=== PATIENT | male | born 1995 | race Caucasian/White ===

== ENCOUNTER 2017-09-12 10:35 | Observation (INO) | payer OTHER ==
[~2017-09-12 10:35] MED LIST: CEFAZOLIN 2 GM/D5W RTU 2 GM/50 ML RTUPB IV PRN; CEFAZOLIN SODIUM 2 GM in NORMAL SALINE 100 ML IV PRN
[2017-09-12] MEDS ORDERED: MIDAZOLAM 2 MG/2 ML INJ ONE ×2 (14:25→16:04)
[2017-09-12] MEDS ORDERED: MIDAZOLAM 2 MG/2 ML INJ IV ONE (14:30)
[2017-09-12] MEDS ORDERED: DEXAMETHASONE SOD PHOSPHATE INJ 4 MG/1 ML VIAL ONE (16:04)
[2017-09-12] MEDS ORDERED: FENTANYL CITRATE INJ/PF 250 MCG/5 ML AMPULE ONE (16:04)
[2017-09-12] MEDS ORDERED: ONDANSETRON HCL INJ/PF 4 MG/2 ML SDV ONE (16:04)
[2017-09-12] MEDS ORDERED: ACETAMINOPHEN 1,000 MG/100 ML RTUPB IV ONE (16:05)
[2017-09-12] MEDS ORDERED: PROPOFOL INJ 200 MG/20 ML VIAL IV ONE (16:05)
[2017-09-12] MEDS ORDERED: HYDROMORPHONE HCL INJ/PF 2 MG/ML AMPULE ONE (16:05)
[2017-09-12] MEDS ORDERED: SUCCINYLCHOLINE CHLORIDE INJ 200 MG/10 ML VIAL ONE (16:16)
[2017-09-12] MEDS ORDERED: MEPERIDINE HCL/PF INJ 25 MG/1 ML DISP.SYRIN IV PRN (17:33)
[2017-09-12] MEDS ORDERED: FENTANYL CITRATE INJ/PF 100 MCG/2 ML AMPUL IV PRN ×2 (17:33)
[2017-09-12] MEDS ORDERED: PROMETHAZINE HCL INJ 25 MG/1 ML VIAL IV PRN (17:33)
[2017-09-12] MEDS ORDERED: DIPHENHYDRAMINE HCL 50 MG/ML VIAL IV PRN ×2 (17:33→20:39)
[2017-09-12] MEDS ORDERED: BUPIVACAINE HCL 0.5 % INJ/PF 30 ML SDV ONE (18:53)
[2017-09-12] MEDS ORDERED: ONDANSETRON HCL INJ/PF 4 MG/2 ML SDV IV PRN (20:38)
[2017-09-12] MEDS ORDERED: ONDANSETRON 4 MG TAB.RAPDIS PO PRN (20:39)
--- NOTE | 2017-09-12 20:40 | Discharge Summary ---
Discharge Summary (SDC) - Discharge Final Diagnosis: Coronoid fracture with ulnohumeral dislocation/instability status post trans- olecranon fracture dislocation Date of Surgery: 09/12/17 Discharge Date: 09/12/17 Condition: Good Treatment or Instructions: Schedule Follow Up w/ Dr. Seun Reid @ [facility] to be seen in 10-14 days or as scheduled [place]: [place]: [place]: Ice and elevate Keep splint clean/dry/intact. If your fingers become numb please unwrap the Niraj wrap but leave the splint in place, if the sensation does not return within 30 minutes please return to the emergency department. May begin finger range of motion attempting to make full fist. Please use ibuprofen (Motrin or Advil) 600-800 mg every 8 hours as needed for pain or fever DO NOT TAKE w/ TORADOL may use once TORADOL complete. You may also use acetaminophen (Tylenol) 1000 mg every 4-6 hours as needed for pain or fever. Please be aware that many medications contain acetaminophen, do not exceed a total of 1000 mg of acetaminophen every 6 hours. If ibuprofen and acetaminophen are not sufficient for your pain you may take the Percocet/[place]. Please be aware that the Percocet/[place] does contain Tylenol. Stool softener of choice when on pain medication. Prescriptions: Ketorolac Tromethamine [Toradol 10 mg Tablet] 10 mg PO Q8HP PRN #10 tablet PRN Reason: Oxycodone HCl 5 mg PO Q6 PRN #30 tablet PRN Reason: Pain Scale Of 5 Discharge Diet: As Tolerated Respiratory Treatments at Home: Deep Breathing/Coughing Discharge Activity: No Lifting Over 10 Pounds, No Lifting/Push/Pulling Report the Following to Your Physician Immediately: Fever over 101 Degrees, Unusual Bleeding, Redness, Swelling, Warmth, Increased Soreness
[2017-09-12] MEDS ORDERED: FENTANYL CITRATE INJ/PF 100 MCG/2 ML AMPUL ONE (20:51)
[2017-09-12] MEDS: FENTANYL CITRATE INJ/PF 100 MCG/2 ML AMPUL IV PRN ×2 (20:53→20:57)
--- NOTE | 2017-09-12 20:56 | Operative Report ---
Operative Report DATE OF SURGERY: 09/12/17 PREOPERATIVE DIAGNOSIS: Coronoid fracture with ulnohumeral dislocation/ instability status post trans-olecranon fracture dislocation POSTOPERATIVE DIAGNOSIS: Same OPERATION: 1. Removal of hardware left elbow. 2. LEFT revision open reduction internal fixation coronoid fracture. 3. LEFT placement of static external fixator ulnohumeral dislocation. 4. LEFT ulnar nerve neuro lysis with subcutaneous transposition. 5. 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 Patient underwent initial successful open reduction internal fixation, unfortunately patient developed instability of the left elbow resulting in ulnohumeral dislocation. Patient was seen initially at [facility] and then sent to [place] for evaluation and treatment. We discussed treatment options given the dislocation of the patient's elbow I felt somewhat urgent operative intervention was warranted and thus we discussed revision open reduction internal fixation coronoid fracture with the possibility of placement of external fixator given patient's residual instability. We also discussed severity of patient's injury and likelihood of posttraumatic arthritis and loss of motion which could cause future issues. After discussing patient outcomes and treatment options decision was made to proceed with operative intervention. Procedure In Detail: Patient was seen and evaluated in the preoperative holding area. The upper extremity was initialized and marked. Patient received 2g of Ancef IV for bacterial prophylaxis. Patient was taken back to the operative room where transferred to the operative table positioned in the supine position and placed under general anesthesia. Once they were adequately anesthetized a nonsterile tourniquet was placed on the upper extremity. A surgical team debriefing was performed ensuring all instrumentation was available, the surgical procedure was discussed with possible concerns reviewed. The upper extremity was prepped with ChloraPrep and draped in a sterile fashion. A timeout was done identifying correct patient, procedure and extremity everyone in attendance agree with this and verbalized no concerns. The extremity was exsanguinated the tourniquet was inflated to 250 mmHg. Patient's previous skin incision was utilized. Blunt dissection was performed until the olecranon plate was approached. I then elevated the soft tissues and the ulnar nerve was identified proximal to the previous surgical site exiting the medial intermuscular septum and triceps. I then freed the nerve distally from Gutierrez's ligament at the cubital tunnel. At the level of the FCU aponeurosis there is significant compression and scarring of the ulnar nerve at this level. Careful blunt dissection was performed and a vascular loop was placed to control the ulnar nerve. Neuro lysis was performed to the first motor branch. I also dissected distal to the first motor branch to further free up the nerve to allow further exposure of the coronoid. As noted previously there was significant compression thus a nerve stimulator was utilized throughout the neuro lysis portion of the procedure which demonstrated the ulnar nerve remained intact. I then gently elevated the ulnar nerve to protected throughout the entirety of the case. The flexor pronator origin was then elevated from the medial epicondyle. Special attention was directed while elevating the flexor pronator mass from the ulnar collateral ligament to preserve it for later repair. Once the flexor pronator mass was elevated and the underlying neurovascular structures protected the medial aspect of the ulnohumeral joint was identified. There was loose body fragments throughout the joint which were removed. The joint was copiously irrigated with normal saline. One large coronoid fragment remained there was complete disruption of the anterior capsule. Inspection of the trochlea demonstrated a large full-thickness disruption of the cartilage which measured approximately 1 mm in depth and followed the curvature of the trochlea for approximately 1 cm. Unfortunately due to the loss of the coronoid fixation the headless compression screw caused significant chondral wear as noted above. Two of the headless compression screws were removed along with an interfragmentary screw within the olecranon. I then turned my attention to fixation of the coronoid. I attempted to place suture fixation within the anterior capsule but given its significant disruption this was unsuccessful. I did note previous FiberWire within the anterior capsule which likely was obtaining fixation until redislocation. I then secured the coronoid fragment placing Montage bone graft to provide further fixation while holding reduction a K wire was placed from posterior to anterior into the coronoid fragment. The Acumed coronoid plate was then secured into position. The first cortical screw was placed providing provisional fixation. C-arm fluoroscopy was obtained confirming appropriate placement of the coronoid plate. I then placed additional fixation distally 1 bicortical screw and 1 locking screw. Sharp tongs of the plate secured the coronoid fragment into position I then placed an additional bicortical screw within the coronoid fragment which provided adequate fixation. Unfortunately there was some mild incongruity of the joint surface given the amount of bone loss along the coronoid base. Under direct visualization I confirmed the screw traversing the coronoid into the olecranon was not within the joint despite projection on radiographs. With range of motion I had adequate fixation of the coronoid fragment without evidence of loosening. The previous K wire was then removed. The wound was once again copiously irrigated with normal saline. A Arthrex 3 mm x 14 mm suture tack anchor was then placed at the origin of the ulnar collateral ligament. A running Krakw suture was placed in the ulnar collateral ligament securing fixation. The remaining sutures were then run distal and proximal within the flexor pronator origin further providing fixation. During closure of the flexor pronator interval the ulnar nerve was positioned anteriorly to allow for later transposition. Once the interval was closed a subcutaneous pouch was fashioned and the ulnar nerve was secured subcutaneously with 3-0 Vicryl suture during transposition a [place] was placed over the ulnar nerve to avoid inadvertent compression. The wound was once again copiously irrigated with normal saline. Tourniquet was deflated. Any peripheral bleeding was controlled with bipolar cautery. Subcutaneous tissues were closed with interrupted 3-0 Vicryl suture and skin was closed with louie. C-arm fluoroscopy was obtained confirming adequate reduction of the coronoid fragment there was improved stability of the elbow however continued to have instability with 60 of extension and thus decision was made to proceed with static external fixator. Extremity was once again exsanguinated and tourniquet inflated to 250 mmHg after 20 minute break point between tourniquet times. C-arm fluoroscopy was obtained confirming the appropriate placement of my patients within the humerus and the olecranon. A 3 cm skin incision was made along the lateral humerus blunt dissection was performed through the triceps and the radial nerve was identified and retracted to expose the lateral humerus. A 4 mm pin was then placed into the central position bicortically. A second skin incision was made distal. Blunt dissection was once again performed and the radial nerve identified anteriorly once again retracted and a 4 mm pin placed into the central position bicortically and confirmed with C-arm fluoroscopy. Distally within the a stab incision was made blunt dissection performed distal to the olecranon plate and a 4 mm pin was placed. Proximally between 2 screws at the olecranon plate a stab incision was once again made and blunt dissection performed exposing the ulna and a bicortical 4 mm pin was placed. The pins proximally and distally respectively were connected with a bar and interconnection was made between these 2 bars while maintaining reduction of the ulnohumeral joint. I then placed an additional bar from the far proximal to far distal to provide secondary fixation. C-arm fluoroscopy was obtained demonstrating maintained reduction of the ulnohumeral joint with the static external fixator. No evidence of hardware loosening or malalignment. 30 cc of 0.5% Marcaine with epinephrine was injected for postoperative pain control. Wound was dressed with Acticoat and 4 x 4's. Acticoat was placed around each pin site and further dressed with a Kerlix soft roll and Niraj bandages. Tourniquet was once again deflated. Sponge counts, instrument counts, needle counts counts were correct. Patient was then awoken from anesthesia. Transferred from the operating room table to the operating room stretcher. There was no intraoperative complications patient tolerated procedure well stable to PACU. Postoperative plan: Patient will be admitted for observation and discharge home tomorrow pending pain control. Patient will follow-up the office in 2 weeks at which point we will proceed with radiographs. Plan will be removal of static external fixator at 6 weeks postoperatively.
[2017-09-12] MEDS ORDERED: KETOROLAC TROMETHAMINE INJ/PF 30 MG/1 ML SDV ONE (21:05)
[2017-09-12] MEDS: HYDROMORPHONE HCL INJ/PF 2 MG/ML AMPULE ONE ×3 (21:10→21:32)
[2017-09-12] MEDS ORDERED: ROPIVACAINE HCL 0.5% INJ/PF (5 MG/1 ML) 30 ML SDV ONE (21:20)
[2017-09-12] MEDS ORDERED: LIDOCAINE 2%/EPINEPHRINE INJ 20 ML VIAL ONE (21:20)
[2017-09-12] MEDS ORDERED: LIDOCAINE 0.5%/EPINEPHRINE INJ 50 ML VIAL ONE (21:21)
[2017-09-12] MEDS ORDERED: LIDOCAINE 2% INJ (20 MG/ML) 20 ML MDV ONE (21:21)
[2017-09-13] MEDS: OXYCODONE HCL SR 10 MG TABLET PO SCH ×3 (00:05→22:05)
[2017-09-13] MEDS: KETOROLAC TROMETHAMINE INJ/PF 30 MG/1 ML SDV IV SCH ×4 (00:18→14:46)
[2017-09-13] MEDS ORDERED: ACETAMINOPHEN 1,000 MG/100 ML RTUPB IV ONE (02:39)
[2017-09-13] MEDS: LANSOPRAZOLE 30 MG TAB.RAP.DR PO SCH (05:43)
[2017-09-13] MEDS: OXYCODONE-ACETAMINOPHEN 5-325 MG TABLET PO PRN ×3 (05:45→22:58)
[2017-09-13] MEDS: OXYCODONE HCL IR 5 MG TABLET PO PRN ×2 (07:45→17:09)
--- NOTE | 2017-09-13 08:19 | PDOC PROGRESS REPORT ---
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 General appearance: PRESENT: mild distress Head exam: PRESENT: normocephalic Respiratory exam: PRESENT: unlabored Cardiovascular exam: PRESENT: RRR Vascular exam: PRESENT: normal capillary refill GI/Abdominal exam: PRESENT: soft Rectal exam: PRESENT: deferred Extremities exam: PRESENT: other - Bilateral upper extremity dressings in place. Slight left hand swelling. Patient complains of tingling throughout the left hand not just in the ulnar nerve distribution. There is brisk capillary refill each of the digits. Motor function seems to be primarily radial at this point. The questionable ulnar and median deficit? Cooperation is somewhat limited in this regard. Neurological exam: PRESENT: alert, awake, oriented to person, oriented to place , oriented to time, oriented to situation Psychiatric exam: PRESENT: depressed Skin exam: PRESENT: dry, intact, warm. ABSENT: cyanosis, rash Results Status: Imported from PACS Assessment & Plan - Diagnosis (1) Monteggia fracture, closed Is this a current diagnosis for this admission?: Yes Plan: Patient to continue to be out of bed ad bety. here. Anticipate discharge Friday.
--- NOTE | 2017-09-13 08:29 | RADIOLOGY REPORT (SQ) ---
EXAM DESCRIPTION: ELBOW LEFT AP/LATERAL; NO CHG FLUORO COMPLETED DATE/TIME: 09/12/2017 9:41 pm REASON FOR STUDY: ORIF LT ELBOW W/EXTERNAL FIXATOR S52.272A MONTEGGIA'S FRACTURE OF LEFT ULNA, INIT FOR CLOS FX S53.125A POSTERIOR DISLOCATION OF LEFT ULNOHUMERAL JOINT, IN S52.042A DISP FX OF CORON OID PROCESS OF LEFT ULNA, INIT FOR COMPARISON: None. FLUOROSCOPY TIME: 1.5 MINUTES 16 images saved to PACS. TECHNIQUE: Intra-operative images acquired during surgical procedure to evaluate progress. NUMBER OF IMAGES: 16 images. LIMITATIONS: None. FINDINGS: Fluoroscopic images demonstrates close reduction of elbow dislocation in a patient has had prior internal fixation and arthroplasty. Final image demonstrates external fixation hardware in pl [place]. No gross complication. IMPRESSION: IMAGE(S) OBTAINED DURING PROCEDURE. COMMENT: Quality ID [id number]: Final reports for procedures using fluoroscopy that document radiation exp osure indices, or exposure time and number of fluorographic images (if radiation exposure indices are not available) Please consult full operative report of the attending physician for description of the procedure. TECHNICAL DOCUMENTATION: JOB ID: [id number] [employer]- All Rights Reserved Reading location - IP/workstation name: [email or web address]
--- NOTE | 2017-09-13 08:29 | RADIOLOGY REPORT (SQ) ---
EXAM DESCRIPTION: ELBOW LEFT AP/LATERAL; NO CHG FLUORO COMPLETED DATE/TIME: 09/12/2017 9:41 pm REASON FOR STUDY: ORIF LT ELBOW W/EXTERNAL FIXATOR S52.272A MONTEGGIA'S FRACTURE OF LEFT ULNA, INIT FOR CLOS FX S53.125A POSTERIOR DISLOCATION OF LEFT ULNOHUMERAL JOINT, IN S52.042A DISP FX OF CORON OID PROCESS OF LEFT ULNA, INIT FOR COMPARISON: None. FLUOROSCOPY TIME: 1.5 MINUTES 16 images saved to PACS. TECHNIQUE: Intra-operative images acquired during surgical procedure to evaluate progress. NUMBER OF IMAGES: 16 images. LIMITATIONS: None. FINDINGS: Fluoroscopic images demonstrates close reduction of elbow dislocation in a patient has had prior internal fixation and arthroplasty. Final image demonstrates external fixation hardware in pl [place]. No gross complication. IMPRESSION: IMAGE(S) OBTAINED DURING PROCEDURE. COMMENT: Quality ID [id number]: Final reports for procedures using fluoroscopy that document radiation exp osure indices, or exposure time and number of fluorographic images (if radiation exposure indices are not available) Please consult full operative report of the attending physician for description of the procedure. TECHNICAL DOCUMENTATION: JOB ID: [id number] [employer]- All Rights Reserved Reading location - IP/workstation name: [email or web address]
[2017-09-13] MEDS: CELECOXIB 200 MG CAPSULE PO SCH ×2 (09:27→17:09)
[2017-09-13] MEDS: HYDROMORPHONE HCL INJ/PF 2 MG/ML AMPULE IV PRN ×3 (10:40→19:38)
[2017-09-13] MEDS: RIVAROXABAN 10 MG TABLET PO SCH (17:08)
[2017-09-14] MEDS: KETOROLAC TROMETHAMINE INJ/PF 30 MG/1 ML SDV IV SCH ×2 (00:05→05:03)
[2017-09-14] MEDS: HYDROMORPHONE HCL INJ/PF 2 MG/ML AMPULE IV PRN ×8 (00:12→23:29)
[2017-09-14] MEDS: LANSOPRAZOLE 30 MG TAB.RAP.DR PO SCH (06:12)
--- NOTE | 2017-09-14 07:37 | PDOC PROGRESS REPORT ---
Subjective Progress Note for:: 09/14/17 Reason For Visit: DISLOCATION, FX L ELBOW S52.272A S53.125A S52.042A 22-year-old white male status post ORIF of a bilateral Monteggia fracture with a revision on the left. Patient making significant progress since yesterday in terms of using the left hand. Physical Exam Vital Signs: Temp Pulse Resp BP Pulse Ox 36.8 C 76 15 145/58 H 98 09/14/17 00:00 09/14/17 00:00 09/14/17 00:00 09/14/17 00:00 09/14/17 00:00 Intake & Output 09/13/17 09/14/17 09/15/17 06:59 06:59 06:59 Intake Total 3400 1030 Output Total 2660 1425 Balance 740 -395 Weight 86.18 kg 89.8 kg General appearance: PRESENT: mild distress Extremities exam: PRESENT: other - External fixator intact. Radial and median nerve function to the hand intact. Ulnar minus hand from both sensory and motor standpoint. Neurological exam: PRESENT: alert, awake, oriented to person, oriented to place , oriented to time, oriented to situation Psychiatric exam: PRESENT: depressed Skin exam: PRESENT: dry, intact, warm. ABSENT: cyanosis, rash Results Impressions: Elbow X-Ray 09/12/17 00:00 IMPRESSION: IMAGE(S) OBTAINED DURING PROCEDURE. Fluoroscopy 09/12/17 00:00 IMPRESSION: IMAGE(S) OBTAINED DURING PROCEDURE. Status: Imported from PACS Assessment & Plan - Diagnosis (1) Monteggia fracture, closed Is this a current diagnosis for this admission?: Yes Plan: Stable postop with improving neurologic function of the left hand and clearly intact median and radial nerve function. Anticipate discharge tomorrow
[2017-09-14] MEDS: OXYCODONE-ACETAMINOPHEN 5-325 MG TABLET PO PRN ×2 (08:02→20:47)
[2017-09-14] MEDS: CELECOXIB 200 MG CAPSULE PO SCH ×2 (09:05→17:41)
[2017-09-14] MEDS: OXYCODONE HCL SR 10 MG TABLET PO SCH (09:05)
[2017-09-14] MEDS ORDERED: IBUPROFEN 800 MG in NORMAL SALINE 250 ML IV ONE (09:30)
[2017-09-14] MEDS: RIVAROXABAN 10 MG TABLET PO SCH (17:39)
[2017-09-14] MEDS: IBUPROFEN 800 MG in NORMAL SALINE 250 ML IV SCH (17:41)
[2017-09-15] MEDS: IBUPROFEN 800 MG in NORMAL SALINE 250 ML IV SCH ×2 (02:13→09:14)
[2017-09-15] MEDS: HYDROMORPHONE HCL INJ/PF 2 MG/ML AMPULE IV PRN ×5 (02:14→13:38)
[2017-09-15] MEDS: LANSOPRAZOLE 30 MG TAB.RAP.DR PO SCH (05:21)
[2017-09-15] MEDS: OXYCODONE-ACETAMINOPHEN 5-325 MG TABLET PO PRN (06:02)
--- NOTE | 2017-09-15 08:09 | PDOC DISCHARGE SUMMARY ---
General - Admit/Disc Date/PCP Discharge Date: 09/15/17 - Discharge Diagnosis (1) Monteggia fracture, closed Is this a current diagnosis for this admission?: Yes - Additional Information Discharge Diet: As Tolerated Discharge Activity: No Lifting Over 10 Pounds, No Lifting/Push/Pulling Prescriptions: Ketorolac Tromethamine [Toradol 10 mg Tablet] 10 mg PO Q8HP PRN #10 tablet PRN Reason: Oxycodone HCl 5 mg PO Q6 PRN #30 tablet PRN Reason: Pain Scale Of 5 Home Medications: Oxycodone HCl/Acetaminophen [Percocet 5-325 mg Tablet] 1 - 2 tab PO ASDIR PRN Ketorolac Tromethamine [Toradol 10 mg Tablet] 10 mg PO Q8HP PRN #10 tablet 09/12 Oxycodone HCl 5 mg PO Q6 PRN #30 tablet 09/12/17 History of Present Illness Patient complains of: Bilateral elbow fracture dislocation History of Present Illness: SURINDER WARE is a 22 year old male who sustained bilateral elbow fracture dislocations [place]. He underwent operative intervention unfortunately developed recurrent dislocation stability of his left upper extremity. Patient was seen at and referred to [facility] for further evaluation and treatment. Patient had been utilizing bilateral hinged elbow brace is upon [place] and [place]. Hospital Course Hospital Course: On 09/12/2017 patient underwent revision ORIF left coronoid with ulnar neurolysis , static external fixator left elbow. Patient tolerated procedure well but postoperatively developed pain. Did receive a regional block the anesthesia. Has been taking Dilaudid and oxycodone with some relief. Does note numbness and tingling in his ring and small finger but has been doing range of motion exercises while in bed. Patient has been up out of bed but does require significant care secondary to his bilateral injuries. Physical Exam Vital Signs: Temp Pulse Resp BP Pulse Ox 98.4 F 73 15 150/59 H 100 09/15/17 00:00 09/15/17 00:00 09/15/17 00:00 09/15/17 00:00 09/15/17 00:00 Intake & Output 09/14/17 09/15/17 09/16/17 06:59 06:59 06:59 Intake Total 1030 1666 Output Total 1425 2 Balance -395 1664 Weight 89.8 kg 89.7 kg General appearance: PRESENT: no acute distress, well-developed, well-nourished Head exam: PRESENT: atraumatic, normocephalic Eye exam: PRESENT: conjunctiva pink, EOMI, PERRLA. ABSENT: scleral icterus Ear exam: PRESENT: normal external ear exam Mouth exam: PRESENT: moist, tongue midline Neck exam: PRESENT: full ROM. ABSENT: carotid bruit, JVD, lymphadenopathy, thyromegaly Cardiovascular exam: PRESENT: RRR. ABSENT: diastolic murmur, rubs, systolic murmur Pulses: PRESENT: normal dorsalis pedis pul, +2 pedal pulses bilateral Vascular exam: PRESENT: normal capillary refill GI/Abdominal exam: PRESENT: normal bowel sounds, soft. ABSENT: distended, guarding, mass, organolmegaly, rebound, tenderness Rectal exam: PRESENT: deferred Extremities exam: PRESENT: other - Left upper extremity: Pin sites clean/dry/ intact. External fixator intact. Patient able to make full composite fist. Patient has decreased sensation in the ulnar nerve distribution. FDP/FDS intact. Intrinsic weakness noted on the ring and small finger. EPL/FPL intact. Compartments soft and compressible no sign of compartment syndrome. Neurological exam: PRESENT: alert, awake, oriented to person, oriented to place , oriented to time, oriented to situation, CN II-XII grossly intact. ABSENT: motor sensory deficit Psychiatric exam: PRESENT: appropriate affect, normal mood. ABSENT: homicidal ideation, suicidal ideation Skin exam: PRESENT: dry, intact, warm. ABSENT: cyanosis, rash Results Impressions: Elbow X-Ray 09/12/17 00:00 IMPRESSION: IMAGE(S) OBTAINED DURING PROCEDURE. Fluoroscopy 09/12/17 00:00 IMPRESSION: IMAGE(S) OBTAINED DURING PROCEDURE. Qualifiers - * PATIENT BEING DISCHARGED WITH ANY OF THE FOLLOWING DIAGNOSIS: No VTE patient discharged on overlapping Therapy?: No Reason(s) for not prescribing Overlap Therapy:: Not indicated Stroke Pt being discharged on Anti-thrombolytic therapy?: No Reason(s) for not prescribing Anti-thrombolytic therapy:: Not indicated Stroke Pt being discharged on Anti-coagulation therapy?: No Reason(s) for not prescribing Anti-coagulation therapy:: Not indicated Stroke Pt being discharged on Statins?: No Reason(s) for not prescribing Statins therapy:: Not indicated NV Pt being discharged on Aspirin therapy?: No Reason(s) for not prescribing Aspirin therapy:: Not indicated NV Pt being discharged on Statins?: No Reason(s) for not prescribing Statin therapy:: Not indicated NV Pt discharged ACEI/ARBS?: No Reason(s) for not prescribing ACEI/ARBS:: Not indicated HF Pt being discharged on ACEI for LVEF less than 40%?: No Reason(s) for not prescribing ACEI:: Not indicated HF Pt being discharged on ARBS for LVEF less than 40%?: No Reason(s) for not prescribing ARBS:: Not indicated HF Pt with Afib discharged with Warfarin?: No Reason(s) for not prescribing Warfarin:: Not indicated Reason(s) for not prescribing evidence-based Beta Janey:: Not indicated Plan Discharge Plan: Patient underwent successful revision ORIF left elbow but given the severity of patient's bilateral upper extremity injuries I do feel inpatient rehabilitation would likely be a better option for multiple reasons including hygiene and ADLs. At this point discussion was made and patient is ingredients to be discharged to rehabilitation. Plan we either patient will be transferred directly to a rehabilitation facility from here or to . Upon discharge patient will avoid weightbearing in his left upper extremity. We will continue dressing changes daily with pin site cleaning with hydrogen peroxide. Patient will be discharged with Percocet oxycodone and Toradol for discomfort. Patient will follow-up the office with me as scheduled.
[2017-09-15] MEDS: CELECOXIB 200 MG CAPSULE PO SCH (09:14)
[2017-09-15 14:06] VITALS: BP 150/59
== END 2017-09-15 14:24 | disposition home or self-care (01) ==
LOC: 4N 12:42 → OROUT 12:42 → EDSTATUS 14:30 → 4N 20:56 → OROUT 09-15 14:24 → 4N 09-15 14:24
PROVIDERS: ADMIT Orthopaedic Surgery; ATTEND Orthopaedic Surgery
PROC: 0PSL04Z Reposition Left Ulna with Internal Fixation Device, Open Approach (ICD-10-PCS; principal; 2017-09-12 14:30)
PROC: 0PH Upper Bones, Insertion (ICD-10-PCS; 2017-09-12 14:30)
PROC: 0RPM04Z Removal of Internal Fixation Device from Left Elbow Joint, Open Approach (ICD-10-PCS; 2017-09-12 14:30)
DX: S52.272A Monteggia's fracture of left ulna, initial encounter for closed fracture (principal); S53.125A Posterior dislocation of left ulnohumeral joint, initial encounter; S52.042A Displaced fracture of coronoid process of left ulna, initial encounter for closed fracture; W11.XXXA Fall on and from ladder, initial encounter; Y92.89 Other specified places as the place of occurrence of the external cause; G56.22 Lesion of ulnar nerve, left upper limb; F32.9 Major depressive disorder, single episode, unspecified
CPT/HCPCS: 24685; 20680; 20690; 73070; G0378 ×4; C1713; C1769; J2795; J2250; J3490 ×4; J1100; J3010 ×2; J1885 ×2; J1170 ×4; J0330; J2405; J7050 ×2; J2704; J0690; J0131; J1741 ×2; 01740